=== PATIENT | female | born 1990 | race Caucasian/White ===

== ENCOUNTER 2018-09-25 10:21 | Emergency (ER) | payer OTHER ==
[2018-09-25 10:46] VITALS: BP 127/75
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
== END 2018-09-25 11:06 | disposition home or self-care (01) ==
LOC: ER 10:21
DX: M54.5 Low back pain (principal); V87.7XXA Person injured in collision between other specified motor vehicles (traffic), initial encounter
CPT/HCPCS: 99283